=== PATIENT | female | born 1980 | race Caucasian/White ===

== ENCOUNTER 2017-11-18 11:41 | Observation (INO) ==
[2017-11-18 12:44] LABS: Basophils % 0.3 %; Eosinophils # 0.2 K/mcL (0.0-0.6); Eosinophils % 1.2 %; Hematocrit 37.3 % (35.3-44.9); Hemoglobin 12.2 g/dL (11.5-15.4); Immature Granulocytes % 0.5 % (0-4); Lymphocytes # 2.1 K/mcL (0.6-4.6); Lymphocytes % 16.1 %; Mean Corpuscular HGB Conc 32.7 g/dL (31.6-35.5); Mean Corpuscular Hemoglobin 29.1 pg (28.0-33.3); Mean Platelet Volume 9.9 fL (9.4-12.4); Monocytes # 0.8 K/mcL (0.0-1.3); Monocytes % 6.2 %; Neutrophils # 9.8 K/mcL (1.6-8.9); Platelet Count 316 K/mcL (140-400); Red Blood Count 4.19 M/mcL (3.82-4.97); Red Cell Distribution Width 12.9 % (11.5-14.5); Segmented Neutrophils % 75.7 %
[2017-11-18 12:48] LABS: Amphetamine Screen,Urine Negative ng/mL (Cutoff=1000); Barbiturate Screen,Urine Negative ng/mL (Cutoff=200); Benzodiazepines Screen,Urine Negative ng/mL (Cutoff=200); Cannabinoid Screen,Urine Negative ng/mL (Cutoff = 50); Cocaine Screen,Urine Negative ng/mL (Cutoff= 300); Opiate Screen,Urine Negative ng/mL (Cutoff=300); Phencyclidine Screen,Urine Negative ng/mL (Cutoff=25)
[2017-11-18 13:27] LABS: Alanine Aminotransferase 7 Units/L (7-52); Aspartate Amino Transferase 11 Units/L (13-39); BUN/Creatinine Ratio 16 (6-26); Blood Urea Nitrogen 9 mg/dL (6-20); Lactate Dehydrogenase 129 Units/L (140-271); Uric Acid 4.5 mg/dL (2.3-7.6); eGFR For African Americans > 60 (> 60); eGFR For Non-African Americans > 60 (> 60)
[2017-11-18 17:03] LABS: Protein/Creatinine Ratio,Urine 0.19 mg/mg (0.00-0.20)
--- NOTE | 2017-11-18 17:20 | OB/GYN Progress Note ---
Date of Encounter: 11/18/17 Time of Encounter: 17:18 - Assessment and Plan (1) 30 weeks gestation of Current Visit: Yes Status: Acute Patient receives care with Dr. Tan. She has a follow-up appointment scheduled on 11/23 (2) Transient hypertension of in third trimester Current Visit: Yes Status: Acute Asymptomatic at this time. Blood pressures normalized on admission. PI warnings given (3) Abnormal test Current Visit: Yes Status: Acute heart tones 130s baseline CAT 1 with the exception of 2 variable decelerations seen on arrival to labor and delivery. Continued monitoring showed reassuring tracing. MARGAUX was performed with the level of 10.7. Subjective - Subjective Principal diagnosis: Gestational hypertension Interval history: The patient is a 37-year-old female who is sent to labor and delivery from the office for elevated blood pressures, 160/102 in the office. She reports that she has had episodes of headaches and spots in front of her eyes but she has had nothing like that today. She denies any epigastric pain. She reports swelling when she is on her feet during the day which goes away overnight. She is appreciating an active fetus at this time and denies discomfort or contractions Antepartum ROS: movement normal, no loss of fluid, no vaginal bleeding, no contractions Objective - Vital Signs Vital Signs: Intake and Output 11/18/17 11/18/17 11/18/17 07:59 15:59 23:59 Other: Weight 109.458 kg Patient Weight 11/18/17 23:59 Weight 109.458 kg - Exam FHR: category 1 FHR comments: [place] shows occasional irregular contractions Auscultation: bilateral: normal Abdomen: Present: soft, gravid. Absent: tenderness - Labs Labs: Abnormal lab results WBC 13.0 K/mcL (4.3-11.1) H 11/18/17 12:10 Neutrophils # 9.8 K/mcL (1.6-8.9) H 11/18/17 12:10 Creatinine 0.58 mg/dL (0.60-1.20) L 11/18/17 12:10 AST 11 Units/L (13-39) L 11/18/17 12:10 Lactate Dehydrogenase 129 Units/L (140-271) L 11/18/17 12:10 - Allied health notes Allied health notes reviewed: nursing
== END 2017-11-18 17:33 | disposition home or self-care (01) ==
LOC: 1NENULAB
PROVIDERS: ADMIT Obstetrics & Gynecology; ATTEND Obstetrics & Gynecology

== ENCOUNTER 2017-12-15 13:44 | Observation (INO) ==
[2017-12-15 14:39] LABS: Bilirubin,Urine Negative (Negative); Blood,Urine Negative (Negative); Clarity,Urine Cloudy (Clear); Color,Urine Yellow (Yellow); Glucose,Urine (UA) Normal (Normal); Ketones,Urine Negative (Negative); Leukocyte Esterase,Urine Small (Negative); Nitrite,Urine Negative (Negative); PH,Urine 6.5 pH Units (5.0-8.0); Protein,Urine 30 mg/dL (Neg-Trace); Specific Gravity,Urine 1.027 (1.010-1.025); Urobilinogen,Urine Normal (Normal)
[2017-12-15 14:41] LABS: Bacteria,Urine Few per hpf (None-Few); Hyaline Casts,Urine None Seen per lpf (None-Few); Squamous Epithelial Cell,Urine Many per lpf (None-Few)
[2017-12-15 15:04] LABS: Amphetamine Screen,Urine Negative ng/mL (Cutoff=1000); Barbiturate Screen,Urine Negative ng/mL (Cutoff=200); Benzodiazepines Screen,Urine Negative ng/mL (Cutoff=200); Cannabinoid Screen,Urine Negative ng/mL (Cutoff = 50); Cocaine Screen,Urine Negative ng/mL (Cutoff= 300); Opiate Screen,Urine Negative ng/mL (Cutoff=300); Phencyclidine Screen,Urine Negative ng/mL (Cutoff=25)
--- NOTE | 2017-12-15 15:39 | OB/GYN Progress Note ---
Date of Encounter: 12/15/17 Time of Encounter: 15:38 - Assessment and Plan (1) 33 weeks gestation of Current Visit: Yes Status: Acute (2) uterine contractions in third trimester, antepartum Current Visit: Yes Status: Acute Discharge home to rest today and potentially tomorrow too Increase water consumption to 1 gallon per day or until urine is mostly clear Follow up with Dr. Tan as scheduled. Subjective - Subjective Interval history: Pt is a 37 yo female at 33+6 weeks GA who presents today with c/o contractions since this morning happening about 2x per hour. 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 Endorses good FM and denies vaginal bleeding, LOF , SANCHEZ, blurry vision. Antepartum ROS: contractions Objective - Vital Signs Vital Signs: Intake and Output 12/14/17 12/15/17 12/15/17 23:59 07:59 15:59 Other: Weight 112 kg Patient Weight 12/15/17 23:59 Weight 112 kg - Exam FHR: auscultation normal Auscultation: bilateral: normal Abdomen: Present: normal appearance, soft, gravid Uterus: Present: normal, firm - Labs Labs: Abnormal lab results Urine Clarity Cloudy (Clear) A 12/15/17 14:21 Ur Specific Max 1.027 (1.010-1.025) H 12/15/17 14:21 Urine Protein 30 mg/dL (Neg-Trace) H 12/15/17 14:21 Ur Leukocyte Esterase Small (Negative) H 12/15/17 14:21 Urine Microscopic RBC 5-15 per hpf (0-3) H 12/15/17 14:21 Urine Microscopic WBC 5-15 per hpf (0-3) H 12/15/17 14:21 Ur Squamous Epith Cells Many per lpf (None-Few) H 12/15/17 14:21
== END 2017-12-15 15:50 | disposition home or self-care (01) ==
LOC: 1NENULAB
PROVIDERS: ADMIT Student in an Organized Health Care Education/Training Program; ATTEND Student in an Organized Health Care Education/Training Program

== ENCOUNTER 2018-01-19 18:52 | Inpatient (IN) ==
[2018-01-19 19:37] LABS: Basophils # 0.1 K/mcL (0.0-0.2); Basophils % 0.4 %; Eosinophils # 0.3 K/mcL (0.0-0.6); Eosinophils % 1.9 %; Hematocrit 34.3 % (35.3-44.9); Hemoglobin 11.3 g/dL (11.5-15.4); Immature Granulocytes % 0.6 % (0-4); Lymphocytes # 2.7 K/mcL (0.6-4.6); Lymphocytes % 19.3 %; Mean Corpuscular HGB Conc 32.9 g/dL (31.6-35.5); Mean Corpuscular Volume 84.9 fL (83.0-100.0); Mean Platelet Volume 10.7 fL (9.4-12.4); Monocytes # 0.9 K/mcL (0.0-1.3); Monocytes % 6.6 %; Neutrophils # 9.8 K/mcL (1.6-8.9); Platelet Count 310 K/mcL (140-400); Red Blood Count 4.04 M/mcL (3.82-4.97); Red Cell Distribution Width 13.1 % (11.5-14.5); Segmented Neutrophils % 71.2 %
[2018-01-19 19:46] LABS: Amphetamine Screen,Urine Negative ng/mL (Cutoff=1000); Barbiturate Screen,Urine Negative ng/mL (Cutoff=200); Benzodiazepines Screen,Urine Negative ng/mL (Cutoff=200); Cannabinoid Screen,Urine Negative ng/mL (Cutoff = 50); Cocaine Screen,Urine Negative ng/mL (Cutoff= 300); Opiate Screen,Urine Negative ng/mL (Cutoff=300); Phencyclidine Screen,Urine Negative ng/mL (Cutoff=25)
[2018-01-19 19:56] LABS: Alanine Aminotransferase 8 Units/L (7-52); Aspartate Amino Transferase 11 Units/L (13-39); BUN/Creatinine Ratio 14 (6-26); Blood Urea Nitrogen 10 mg/dL (6-20); Lactate Dehydrogenase 152 Units/L (140-271); Uric Acid 5.7 mg/dL (2.3-7.6); eGFR For African Americans > 60 (> 60); eGFR For Non-African Americans > 60 (> 60)
[2018-01-19 19:58] LABS: Protein/Creatinine Ratio,Urine 0.54 mg/mg (0.00-0.20)
--- NOTE | 2018-01-19 20:01 | OB/GYN History & Physical ---
Date of Encounter: 01/19/18 Time of Encounter: 19:53 Assessment and Plan (1) Preeclampsia Current visit: Yes Status: Acute 38 and 6 week with known complication of preeclampsia. PIH labs completed 01/17 with elevate protein/Cr ratio at 0.38. Vitals with bp elevated in 140-160s/ 90s. Patient of Dr. Tan. Concern for worsening preeclampsia. -PIH labs and Protein/Cr ratio. Protein/Cr ratio returned elevated from 0.38 to 0.54. -Continuous monitoring and vitals. -Induction of labor and expectant management. -Magnesium Qualifiers: Trimester: third trimester Qualified Code(s): O14.93 - Unspecified pre- eclampsia, third trimester (2) 38 weeks gestation of Current visit: Yes Status: Acute 38 and 6 weeks. Per plan in assessment above and expectant management. History of Present Illness Chief complaint: PIH eval HPI: Ms. Sanchez is a 37 year old female at 38 and 6 weeks and current complication of preeclampsia who presents to L&D with complaints of headaches and nausea that started earlier today and floaters in vision for past couple days. Has also had increased swelling and tightness of lower extremities. Patient was evaluated by Dr. Tan with PI labs two days ago and had elevated protein/Cr ratio a 0.38 and elevated bp. Reports sweats. Denies fevers, chest pain, shortness of breath, abdominal pain, changes in bowels or bladder, weakness, or loss of sensation. 2 prior uncomplicated vaginal deliveries. Rubella and Varicella positive., Hep B nonreactive, syphilis negative, HIV nonreactive. Past Med Surg Social Fam HX - Past Medical History Medical history: non-contributory Psychiatric history: anxiety, depression - Past Surgical History Surgical History: no surgical history - Social History Smoking Status: Former smoker Smokeless Tobacco Status: No Alcohol use: none Drug use: none - Family History Mother Age: 55 Family Member Ethnicity: Non- Living Status: Still Living Hx Family Cardiac Disorders: No Hx Family Respiratory Disorders: Yes (asthma, copd) Hx Family Cancer: No Hx Family GI Disorders: No Hx Family Genitourinary Disorders: No Hx Family Endocrine Disorder: No Hx Family Musculoskeletal Disorders: No Hx Family Neuromuscular Disorders: No Hx Family Neurologic Disorders: No Hx Family HEENT Disorders: No Hx Family Autoimmune Disorders: No Hx Family Reproductive Disorders: No Hx Family Psychosocial Disorders: No Hx Family Medical Disorders: No Obstetrical History - Pregnancies : 3 Para: 2 Term: 2 Livin Medications and Allergies Buspirone HCl [Buspar] 5 mg PO DAILY 12/15/17 [History] Formula Tablet 1 tab PO DAILY 01/19/18 [History] Zantac 150 mg PO BID 01/19/18 [History] 3 Allergy/AdvReac Type Severity Reaction Status Date / Time egg Allergy Itching Verified 12/15/17 14:24 influenza virus vaccine qv Allergy Rash Verified 12/15/17 14:25 2016- (18 yr up),rcmb [From [employer] Quad [id number] (PF)] influenza virus vaccine tv Allergy Rash Verified 12/15/17 14:25 2012-(18-49 yrs),rcmb [From Kuli Kuli] Review of System OB - Constitutional Constitutional ROS IM: as per HPI, no fever(s), no weakness - Nose, mouth, and throat Nose, mouth and throat: as per HPI - Cardiovascular Cardiovascular: as per HPI, leg edema, no chest pain, no dyspnea - Respiratory Respiratory: as per HPI, no dyspnea - Gastrointestinal Gastrointestinal: as per HPI - Genitourinary Genitourinary: as per HPI - Integumentary Integumentary: as per HPI - Neurological Nerological: as per HPI, no weakness Exam - Vital Signs Vital signs: Initial Vital Signs Pulse Resp BP 120 16 147/95 01/19/18 19:14 01/19/18 19:14 01/19/18 19:14 - Constitutional Constitutional: well developed, well nourished, no acute distress, average body habitus - HEENT HEENT: Normocephaly, Mucus Membranes Moist - Neck Neck exam: full ROM, normal inspection, supple, trachea midline - Lungs Respiratory exam: CTAB - Cardiovascular Cardiovascular exam: tachycardia - Abdomen Abdomen: Present: bowel sounds normal, gravid, non tender - Extremities Extremities exam: pedal edema (2+ bilateral), warm Deep Tendon Reflex Grade: 3+ Normal But Brisk - Vulva Vulva: bilateral: normal - Vagina Vagina: Present: normal moisture - Cervix Dilation: 1 (1.5) Effacement: 50 Station: -2 Results Result Diagrams: 01/19/18 19:20 04/12/18 19:20 Abnormal lab results WBC 13.8 K/mcL (4.3-11.1) H 01/19/18 19:20 Hgb 11.3 g/dL (11.5-15.4) L 01/19/18 19:20 Hct 34.3 % (35.3-44.9) L 01/19/18 19:20 Neutrophils # 9.8 K/mcL (1.6-8.9) H 01/19/18 19:20 All other labs normal. - VTE Reasons for not Prescribing Prophylaxis: Treatment not Indicated - Low risk for VTE
[2018-01-19] MEDS ORDERED: Famotidine 20 MG/2 ML VIAL IVP PRN (20:24)
[2018-01-19] MEDS ORDERED: Lidocaine 1% 20 ML MDV INFILT PRN (20:24)
[2018-01-19] MEDS ORDERED: miSOPROStol 25 MCG TABLET PO PRN (20:24)
[2018-01-19] MEDS ORDERED: Calcium Gluconate 1,000 MG/10 ML VIAL IV PRN (20:24)
[2018-01-19] MEDS ORDERED: Naloxone 0.4 MG/ML INJ IVP PRN (20:24)
[2018-01-19] MEDS ORDERED: *HR* Nalbuphine 10 MG/ML AMPUL IVP PRN (20:24)
[2018-01-19] MEDS: Ringers Solution, Lactated 1,000 ML IVC SCH (21:06)
[2018-01-19] MEDS ORDERED: Acetaminophen/Butalbital/CaffeineTABLET PO PRN (21:22)
[2018-01-19] MEDS ORDERED: Calcium Gluconate 1,000 MG/10 ML VIAL IVPB ONE (21:39)
[2018-01-19] MEDS: Magnesium Sulfate 20 gm/500mL 20 GM/500 ML IV.SOLN IVC SCH (21:49)
--- NOTE | 2018-01-19 22:23 | OB Labor Progress Note ---
Date of Encounter: 01/19/18 Time of Encounter: 22:18 Labor Progress Note - Subjective Subjective: Pt reports she is comfortable with few contractions. She also reports she is feeling very hot from magnesium. - Cervix Cervix: 3/60/-2 - Heart Tones Heart Tones: Baseline 130 Moderate variability Accelerations present 15x15 Decelerations absent FHR category I - [place]: Few contractions - Interventions Interventions: Bhatt bulb placed. Cytotec administered PO - Plan Plan: Continue expectant management Use peanut ball frequently Anticipate Dr. Gupta aware of POC and agrees
[2018-01-19] MEDS ORDERED: Bupivacaine-MPF 0.25% 10 ML VIAL EP ONE (23:29)
[2018-01-19] MEDS ORDERED: *HR* FentaNYL (PF) 100 MCG/2 ML VIAL EP ONE (23:29)
[2018-01-19] MEDS ORDERED: Epidural Premix (fent/bupiv) 110 ML EP SCH (23:30)
--- NOTE | 2018-01-19 23:32 | Anesthesia Evaluation PreOp ---
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 Epidural with first , no problems. No FHAP.) : Yes Alcohol Use: none Drug use: none Medications and Allergies Buspirone HCl [Buspar] 5 mg PO DAILY 12/15/17 [History] Formula Tablet 1 tab PO DAILY 01/19/18 [History] Zantac 150 mg PO BID 01/19/18 [History] 3 Allergy/AdvReac Type Severity Reaction Status Date / Time egg Allergy Itching Verified 12/15/17 14:24 influenza virus vaccine qv Allergy Rash Verified 12/15/17 14:25 2016- (18 yr up),rcmb [From [employer] Quad [id number] (PF)] influenza virus vaccine tv Allergy Rash Verified 12/15/17 14:25 2012-(18-49 yrs),rcmb [From Sgrouples] - Meds/Allergy Pre-op Review Medications Reviewed: Yes Allergies Reviewed: Yes Beta Blockers on Current Med List: No Anesthesia Results - Labs 01/19/18 19:20 01/19/18 19:20 Anesthesia Exam 140/87, 93, 16. FHTs 120s. Height: 1.68m Weight: 119kg NPO (# of Hours): 6 Pain Scale: 5 Pain Scale Used: Numeric (1 - 10) - HEENT Pupil (Motor): Pupils equal, EOMI Mallampati: II Teeth: Normal (full veneer uppers.) Oral Opening: Greater than 3 - SHOVEL OPERATOR LOC: Oriented SHOVEL OPERATOR Motor: Normal RUE, Normal LUE, Normal RLE, Normal LLE, Normal Face SHOVEL OPERATOR Sensory: Normal: RUE, LUE, RLE, LLE, Face - Cardiac Rhythm: Regular - Pulmonary Breath Sounds: bilateral Clear Respiratory Effort: Symmetrical Anesthesia Assess/Plan ASA Score: 3 (PIH, anxiety, BMI 42.) Modified Karla Scale for Level of Consciousness: Cooperative, oriented, and tranquil Anesthetic Plan: Regional Monitoring Plan: Standard Monitors
[2018-01-20] MEDS ORDERED: Oxytocin 20 units/ LR 1000 mL 20 UNIT/1,000 ML BAG IVC ONE (02:45)
[2018-01-20] MEDS ORDERED: Oxytocin 20 units/ LR 1000 mL 20 UNIT/1,000 ML BAG IVC SCH (02:45)
[2018-01-20] MEDS: Ondansetron 4 MG/2 ML VIAL IVP PRN ×2 (03:20→19:39)
--- NOTE | 2018-01-20 03:30 | OB Labor Progress Note ---
Date of Encounter: 01/20/18 Time of Encounter: 03:28 Labor Progress Note - Subjective Subjective: Pt reports slight discomfort with contractions. - Cervix Cervix: 6/70/-2 - Heart Tones Heart Tones: Baseline 145 Moderate variability Accelerations present 15x15 No decelerations FHR Category I - [place]: Contractions every 3-5 minutes - Interventions Interventions: Bhatt bulb out SVE - Plan Plan: Continue expectant management Increase pitocin per protocol to adequate labor pattern Anticipate
[2018-01-20] MEDS ORDERED: Epidural Premix (fent/bupiv) 110 ML EP ONE ×4 (07:14→23:20)
--- NOTE | 2018-01-20 07:19 | OB Labor Progress Note ---
Date of Encounter: 01/20/18 Time of Encounter: 07:17 Labor Progress Note - Subjective Subjective: Pt reports she is nearly ready for epidural. Contractions are making her uncomfortable. - Cervix Cervix: 7-8/80/-1 - Heart Tones Heart Tones: Baseline 125 Moderate variability Accelerations present 15x15 No decelerations FHR Category I - [place]: Contractions every 2-3 minutes and palpate strong - Interventions Interventions: SVE Epidural requested - Plan Plan: Continue expectant management May have epidural Anticipate
[2018-01-20] MEDS ORDERED: EPHEDrine 50 MG/ML VIAL ONE ×2 (07:46→21:34)
[2018-01-20] MEDS: Magnesium Sulfate 20 gm/500mL 20 GM/500 ML IV.SOLN IVC SCH ×2 (08:20→18:30)
[2018-01-20] MEDS: Ringers Solution, Lactated 1,000 ML IVC SCH (08:20)
--- NOTE | 2018-01-20 08:21 | Anesthesia Procedures ---
Date of Encounter: 01/20/18 Time of Encounter: 07:26 Procedures: Anesthesia - Epidural/Spinal Patient ID/Chart reviewed: Yes Patient examined: Yes OB Eval: Gestational age: term OB Eval: : 3 OB Eval: Hx Para: 2 OB Eval: Contractions: Non-stressed pattern Consent Obtained: Yes Supplemental Oxygen: None/Room Air Site Prep: Aseptic Technique, Sterile prep and drape, 0.5% Chlorhexidine/Alcohol Patient position: upright Local Anesthetic: Lidocaine 1% Amount of Local Anesthetic used: 2 Touhy Needle Gauge: 18 Touhy Needle Depth (cm): 8 Catheter Depth at Skin (cm): 13 Test Dose (1.5% Lido + Epi): Volume given (mls): 3 Test Dose Result: Negative Loading Dose: Other: 10ml from solution Loading Dose Administered: Thru Catheter Infusion Med: 0.125% Bupivacaine w/ 2 mcg/ml Fentanyl Infusion Rate (mls/hr): [address]: Tegaderm, Tape Interspace Used: L3-L4 Loss of Resistance (BENNIE): Yes (saline) Blood: No CSF: No Paresthesia: No Procedure: vss during procedure, mild hypotension requiring 100mcg tello and 10mg ephedrine, FHR stable though out per RN's
[2018-01-20] MEDS ORDERED: *HR* ROPIVACAINE 1% PF 100 MG/10 ML VIAL ONE (11:31)
--- NOTE | 2018-01-20 11:49 | Anesthesia Progress Note ---
Date of Encounter: 01/20/18 Time of Encounter: 11:37 Anesthesia Note - Note Note: 01/20/18 11:45 requesting bolus, c/o pain lower abd, neg aspiration, bolus with 8ml, 4 with lido/epi, 4 with 0.5% rop plain. vss though out, RN's/family at BS.
--- NOTE | 2018-01-20 12:44 | OB Labor Progress Note ---
Date of Encounter: 01/20/18 Time of Encounter: 12:42 Labor Progress Note - Subjective Subjective: pt resting om - Cervix Cervix: 7/80/-1 - Heart Tones Heart Tones: 180/minimal/no accels/late variable decels - [place]: IUPC placed - Interventions Interventions: IUPC placed without difficulty - Plan Plan: Turn pitocin off now Bolus 500mls Reposition on side anesthesia for blood pressure regulation. possible C/S if tracing continues.
[2018-01-20] MEDS ORDERED: Ondansetron 4 MG/2 ML VIAL ONE (12:50)
[2018-01-20] MEDS ORDERED: *HR* Ropivacaine/PF 0.5% 20 ML VIAL ONE (16:15)
[2018-01-20] MEDS ORDERED: Acetaminophen 325 MG TABLET PO ONE (19:48)
[2018-01-20] MEDS ORDERED: *HR* FentaNYL (PF) 100 MCG/2 ML VIAL ONE (20:37)
--- NOTE | 2018-01-20 20:54 | Anesthesia Progress Note ---
Date of Encounter: 01/20/18 Time of Encounter: 20:44 Anesthesia Note - Note Note: pt c/o pain right hip, right tilt, bolus post neg aspiration 5ml 0.5% rop with 100mcg fent
--- NOTE | 2018-01-20 21:19 | OB Labor Progress Note ---
Date of Encounter: 01/20/18 Time of Encounter: 21:19 Labor Progress Note - Subjective Subjective: pt comfortable with epidural - Cervix Cervix: 9 per RN - Heart Tones Heart Tones: 135/minimal/+accels/variable and late decels - [place]: 3-4 - Plan Plan: Frequent repositoning continue magnesium Use peanut ball Pitocin if tracing permits per policy Anticipate
--- NOTE | 2018-01-21 02:15 | OB Labor Progress Note ---
Date of Encounter: 01/21/18 Time of Encounter: 02:12 Labor Progress Note - Subjective Subjective: Pt comfortable with epidural. Pt states she is feeling exhausted and nauseated from magnesium. - Cervix Cervix: Complete/0 station per RN - Heart Tones Heart Tones: 150/minimal/+accels/ variable - [place]: q3-5 - Plan Plan: Will start pushing soon Concern with maternal exhaustion
--- NOTE | 2018-01-21 03:47 | OB/GYN Procedure Note ---
Delivery - Delivery Date: 01/21/18 Provider: Raina Barnes Intrapartum events: prolonged labor- > = 20hr Delivery induction: AROM, oxytocin, snell, misoprostol Delivery monitor: external FHT, external uterine, internal uterine Anesthesia: epidural Estimated Blood Loss: 400 - (s) A Infant Delivery Date: 01/21/18 Delivery Time: 03:09 Presentation: vertex Position: OA Route of delivery: Gender: Female Viability: Viable Pounds: 8 Ounces: 5 Weight Gram: 3780 kg at 1 minute: 8 at 5 mins: 9 Shoulder Dystocia: not encountered Specimens collected: cord blood Placenta: spontaneous Cord: 3 umbilical vessels - Repair Episiotomy: none Laceration Description: Perineal - 2nd Degree - Complications Delivery complications: none Delivery comments: Induction of labor for PIH, progressed to complete, maternal bearing down efforts to of liveborn female, vertex delivered OA, shoulders and body easily followed, no nuchal cord or shoulder dystocia encountered. Vigorous infant placed on maternal abdomen, APGARS 8/9. Second degree perineal laceration repaired with 3-0 vycril. Placenta delivered spontaneous ([place]) complete upon inspection. Pticoin started per policy, fundus slow to firm. 400mcg po cytotec given. EBL 400. - Disposition Mom disposition: stable in LDR disposition: stable in LDR
[2018-01-21] MEDS ORDERED: Oxytocin 20 units/ LR 1000 mL 20 UNIT/1,000 ML BAG IVC SCH (06:05)
[2018-01-21] MEDS ORDERED: Acetaminophen 325 MG TABLET PO PRN (06:05)
[2018-01-21] MEDS ORDERED: Lanolin 7 G OINT...G. TP PRN (06:05)
[2018-01-21] MEDS ORDERED: Magnesium Sulfate 20 gm/500mL 20 GM/500 ML IV.SOLN IVC SCH (06:05)
[2018-01-21] MEDS ORDERED: Benzocaine/Menthol 56 GM AEROSOL SPRAY TP PRN (06:05)
[2018-01-21] MEDS: Prenatal Vit/FA 1 EACH TABLET PO SCH (09:22)
[2018-01-21 09:37] LABS: Mean Corpuscular Hemoglobin 28.2 pg (28.0-33.3); Mean Platelet Volume 10.7 fL (9.4-12.4); Red Cell Distribution Width 13.6 % (11.5-14.5)
[2018-01-21 09:39] LABS: Hematocrit 31.5 % (35.3-44.9); Hemoglobin 10.2 g/dL (11.5-15.4); Mean Corpuscular HGB Conc 32.4 g/dL (31.6-35.5); Platelet Count 260 K/mcL (140-400); Red Blood Count 3.62 M/mcL (3.82-4.97)
[2018-01-21 09:45] LABS: Alanine Aminotransferase 9 Units/L (7-52); Aspartate Amino Transferase 17 Units/L (13-39); BUN/Creatinine Ratio 11 (6-26); Blood Urea Nitrogen 11 mg/dL (6-20); Lactate Dehydrogenase 240 Units/L (140-271); Magnesium 7.5 mg/dL (1.6-2.6); Uric Acid 7.5 mg/dL (2.3-7.6); eGFR For African Americans > 60 (> 60); eGFR For Non-African Americans > 60 (> 60)
[2018-01-21 10:14] LABS: Anisocytosis 1+ (Not Present); Lymphocytes # 1.1 K/mcL (0.6-4.6); Monocytes # 1.7 K/mcL (0.0-1.3); Neutrophils # 25.6 K/mcL (1.6-8.9); Platelet Estimate Normal (Normal)
[2018-01-21] MEDS: Magnesium Sulfate 20 gm/500mL 20 GM/500 ML IV.SOLN IVC SCH ×2 (10:15→18:31)
--- NOTE | 2018-01-21 10:21 | OB/GYN Progress Note ---
Date of Encounter: 01/21/18 Time of Encounter: 10:16 - Assessment and Plan (1) Vaginal delivery Current Visit: Yes Status: Acute Continue routine care (2) Breast feeding status of mother Current Visit: Yes Status: Acute support prn (3) Preeclampsia Current Visit: Yes Status: Acute Decrease magnesium sulfate to 1gram per hour VS Q2 hours continue strict I&Os magnesium leves Q6 hours until discontinued Magnesium to be discontinued at 0300 on 01/22/18 Qualifiers: Trimester: third trimester Qualified Code(s): O14.93 - Unspecified pre- eclampsia, third trimester Subjective - Subjective Principal diagnosis: status post on Magnesium sulfate for PIH Interval history: Patient is status post vaginal delivery. Patient has been on Magnesium sulfate since January. Patient reports dizziness and weakness. Patient denies headache. BPs WNL. Urine output appropriate. Lungs are CTAB. Discussed BPs, lab work including magnesium level with Dr. Yost. Dr. Yost orders magnesium to be decreased to 1gram per hour due to Magnesium level at 7.5 and due to magnesium sulfate dosing 4-7 is therapeutic. Will repeat magnesium level in 6 hours. Vitals signs to be every 2 hours. Patient reports: appetite normal, pain well controlled, other (Patient has snell catheter draining clear yellow urine. ) [place]: doing well, nursing well Objective - Latest Vital Signs Latest vital signs: Vital Signs Temp Pulse Resp BP Pulse Ox 01/21/18 09:15 104 24 119/75 97 01/21/18 08:15 98 F 108 24 118/75 96 01/21/18 07:15 98.8 F 108 24 132/82 97 01/21/18 06:15 98.4 F 103 16 122/81 95 Intake and Output 01/20/18 01/21/18 01/21/18 23:59 07:59 15:59 Intake Total 500 / 500 300 / 300 800 / 800 Output Total 1300 / 1300 1000 / 1000 Balance 500 / 500 -1000 / -1000 -200 / -200 Intake: IV Fluids 500 / 500 Magnesium Sulfate Premix 20 gm/ 500 / 500 500mL 20 gm In 500 ml @ 2 GM/HR 50 mls/hr IVC .Q10H ANTONIA Rx#: [id number] Oral 300 / 300 800 / 800 Output: Urine 0 / 0 600 / 600 Estimated Blood Loss 400 / 400 Catheter 900 / 900 400 / 400 Other: Meal Breakfast Percent of Meal Consumed 100% Weight 121.79 kg Patient Weight 01/21/18 23:59 Weight 121.79 kg - Exam Lungs: bilateral: normal Chest: Normal S1, Normal S2 Extremities: Present: edema (bilateral lower extremetis pitting edema, upper extremeties bilateral) Abdomen: Present: normal appearance, soft, gravid Uterus: Present: normal, firm Uterus Position: At Umbilicus, Midline Comments: 3+ DTRs, no clonus - Labs Labs: Laboratory Results - last 24 hr 01/21/18 01/21/18 06:35 06:35 WBC 28.4 H D RBC 3.62 L Hgb 10.2 L Hct 31.5 L MCV 87.0 MCH 28.2 MCHC 32.4 RDW 13.6 Plt Count 260 MPV 10.7 Seg Neutrophils % 90.0 Lymphocytes % 4.0 Monocytes % 6.0 Neutrophils # 25.6 H Lymphocytes # 1.1 Monocytes # 1.7 H Platelet Estimate Normal Anisocytosis 1+ A BUN 11 Creatinine 1.01 Est GFR ( Amer) > 60 Est GFR (Non-Af Amer) > 60 BUN/Creatinine Ratio 11 Uric Acid 7.5 Magnesium 7.5 H AST 17 ALT 9 Lactate Dehydrogenase 240
[2018-01-21] MEDS ORDERED: Ringers Solution, Lactated 1,000 ML IVC SCH (11:15)
[2018-01-21] MEDS ORDERED: miSOPROStol 100 MCG TABLET PO ONE (14:59)
[2018-01-21] MEDS: Ibuprofen 600 MG TABLET PO PRN (21:20)
[2018-01-22 03:06] LABS: Basophils # 0.1 K/mcL (0.0-0.2); Basophils % 0.4 %; Eosinophils # 0.3 K/mcL (0.0-0.6); Eosinophils % 1.3 %; Hematocrit 31.4 % (35.3-44.9); Hemoglobin 10.4 g/dL (11.5-15.4); Immature Granulocytes % 0.8 % (0-4); Lymphocytes # 3.3 K/mcL (0.6-4.6); Lymphocytes % 17.7 %; Mean Corpuscular HGB Conc 33.1 g/dL (31.6-35.5); Mean Corpuscular Volume 87.5 fL (83.0-100.0); Mean Platelet Volume 10.3 fL (9.4-12.4); Monocytes # 1.1 K/mcL (0.0-1.3); Monocytes % 5.8 %; Neutrophils # 13.9 K/mcL (1.6-8.9); Platelet Count 296 K/mcL (140-400); Red Blood Count 3.59 M/mcL (3.82-4.97); Red Cell Distribution Width 13.9 % (11.5-14.5)
[2018-01-22 03:29] LABS: Alanine Aminotransferase 8 Units/L (7-52); Aspartate Amino Transferase 14 Units/L (13-39); BUN/Creatinine Ratio 12 (6-26); Blood Urea Nitrogen 12 mg/dL (6-20); Lactate Dehydrogenase 250 Units/L (140-271); Uric Acid 8.2 mg/dL (2.3-7.6); eGFR For African Americans > 60 (> 60); eGFR For Non-African Americans > 60 (> 60)
[2018-01-22] MEDS: Prenatal Vit/FA 1 EACH TABLET PO SCH (08:35)
--- NOTE | 2018-01-22 09:03 | OB/GYN Progress Note ---
Date of Encounter: 01/22/18 Time of Encounter: 09:01 - Assessment and Plan (1) Vaginal delivery Current Visit: Yes Status: Acute Continue routine care (2) Breast feeding status of mother Current Visit: Yes Status: Acute support prn (3) Preeclampsia Current Visit: Yes Status: Acute Magnesium sulfate off at 0300 will repeat PIH labs in AM vital signs Q4 hours Qualifiers: Trimester: third trimester Qualified Code(s): O14.93 - Unspecified pre- eclampsia, third trimester Subjective - Subjective Principal diagnosis: day 1, , severe PIH Interval history: Patient is day 1. Patient had severe PIH and was on magnesium sulfate until 0300. BPs VS WNL, patient reports feeling better. Denies SANCHEZ, visual disturbances or epigastric pain. Urine output appropriate. Discussed lab values with patient. Will plan to repeat labs in AM and discharge tomorrow. Patient reports: appetite normal, voiding normally, pain well controlled, ambulating normally [place]: doing well, nursing well Objective - Latest Vital Signs Latest vital signs: Vital Signs Temp Pulse Resp BP Pulse Ox 01/22/18 08:37 98.3 F 94 14 113/80 97 01/22/18 05:15 112/72 01/22/18 02:15 98.2 F 78 20 119/75 96 01/22/18 01:15 86 16 110/74 97 01/21/18 23:30 98.3 F 85 16 113/69 95 01/21/18 21:15 98.5 F 98 16 111/76 96 01/21/18 19:24 89 16 112/73 97 01/21/18 19:15 98.1 F 90 16 126/85 97 01/21/18 17:15 98 F 86 20 124/79 98 01/21/18 15:40 98 F 94 20 121/71 97 01/21/18 11:15 97.7 F 93 24 109/65 96 01/21/18 09:15 104 24 119/75 97 Intake and Output 01/21/18 01/22/18 01/22/18 23:59 07:59 15:59 Intake Total 290 / 290 675 / 675 Output Total 1950 / 1950 200 / 200 Balance -1660 / -1660 475 / 475 Intake: IV Fluids 50 / 50 675 / 675 Magnesium Sulfate Premix 20 gm/ 50 / 50 175 / 175 500mL 20 gm In 500 ml @ 1 GM/HR 25 mls/hr IVC .Q20H ANTONIA Rx#: [id number] Lactated Ringers 1,000 ML @ 75 500 / 500 mls/hr IVC .[id number] ANTONIA Rx#: [id number] Oral 240 / 240 0 / 0 Output: Urine 1050 / 1050 Catheter 900 / 900 200 / 200 Other: Meal Dinner Percent of Meal Consumed 100% Weight 113.126 kg Patient Weight 01/22/18 23:59 Weight 113.126 kg - Exam Lungs: bilateral: normal Chest: Normal S1, Normal S2 Extremities: Present: normal Abdomen: Present: normal appearance, soft, gravid Uterus: Present: normal, firm Uterus Position: 1 Finger Below Umbilicus, Midline Comments: 2+ DTRs no clonus. 2+ pitting edema bilateral lower extremities. - Labs Labs: Laboratory Results - last 24 hr 01/21/18 01/21/18 01/21/18 06:35 06:35 15:43 WBC 28.4 H D RBC 3.62 L Hgb 10.2 L Hct 31.5 L MCV 87.0 MCH 28.2 MCHC 32.4 RDW 13.6 Plt Count 260 MPV 10.7 Immature Gran % Seg Neutrophils % 90.0 Lymphocytes % 4.0 Monocytes % 6.0 Eosinophils % Basophils % Neutrophils # 25.6 H Lymphocytes # 1.1 Monocytes # 1.7 H Eosinophils # Basophils # Platelet Estimate Normal Anisocytosis 1+ A BUN 11 Creatinine 1.01 Est GFR ( Amer) > 60 Est GFR (Non-Af Amer) > 60 BUN/Creatinine Ratio 11 Uric Acid 7.5 Magnesium 7.5 H 5.9 H AST 17 ALT 9 Lactate Dehydrogenase 240 01/21/18 01/22/18 01/22/18 22:03 02:59 02:59 WBC 18.7 H RBC 3.59 L Hgb 10.4 L Hct 31.4 L MCV 87.5 MCH 29.0 MCHC 33.1 RDW 13.9 Plt Count 296 MPV 10.3 Immature Gran % 0.8 Seg Neutrophils % 74.0 Lymphocytes % 17.7 Monocytes % 5.8 Eosinophils % 1.3 Basophils % 0.4 Neutrophils # 13.9 H Lymphocytes # 3.3 Monocytes # 1.1 Eosinophils # 0.3 Basophils # 0.1 Platelet Estimate Anisocytosis BUN 12 Creatinine 1.04 Est GFR ( Amer) > 60 Est GFR (Non-Af Amer) > 60 BUN/Creatinine Ratio 12 Uric Acid 8.2 H Magnesium 5.0 H AST 14 ALT 8 Lactate Dehydrogenase 250
[2018-01-22] MEDS: Ibuprofen 600 MG TABLET PO PRN (16:11)
[2018-01-23] MEDS: Ibuprofen 600 MG TABLET PO PRN (04:11)
[2018-01-23 04:14] LABS: Basophils # 0.1 K/mcL (0.0-0.2); Basophils % 0.5 %; Eosinophils # 0.3 K/mcL (0.0-0.6); Eosinophils % 2.4 %; Hematocrit 30.4 % (35.3-44.9); Hemoglobin 9.8 g/dL (11.5-15.4); Immature Granulocytes % 0.8 % (0-4); Lymphocytes % 25.6 %; Mean Corpuscular HGB Conc 32.2 g/dL (31.6-35.5); Mean Corpuscular Hemoglobin 28.3 pg (28.0-33.3); Mean Corpuscular Volume 87.9 fL (83.0-100.0); Monocytes # 0.7 K/mcL (0.0-1.3); Neutrophils # 7.5 K/mcL (1.6-8.9); Nucleated Red Blood Cells 0.3 /100 WBC (0); Platelet Count 272 K/mcL (140-400); Red Blood Count 3.46 M/mcL (3.82-4.97); Red Cell Distribution Width 13.7 % (11.5-14.5); Segmented Neutrophils % 64.7 %
[2018-01-23 04:33] LABS: Alanine Aminotransferase 8 Units/L (7-52); Aspartate Amino Transferase 13 Units/L (13-39); BUN/Creatinine Ratio 16 (6-26); Blood Urea Nitrogen 13 mg/dL (6-20); Lactate Dehydrogenase 214 Units/L (140-271); Uric Acid 7.9 mg/dL (2.3-7.6); eGFR For African Americans > 60 (> 60); eGFR For Non-African Americans > 60 (> 60)
[2018-01-23 07:24] VITALS: BP 112/76
[2018-01-23] MEDS: Prenatal Vit/FA 1 EACH TABLET PO SCH (07:43)
--- NOTE | 2018-01-23 11:40 | Discharge Summary ---
Date of Encounter: 01/23/18 Time of Encounter: 11:38 - Discharge Diagnosis (1) Breast feeding status of mother Priority: Secondary Status: Acute (2) Preeclampsia Priority: Secondary Status: Acute Qualifiers: Trimester: third trimester Qualified Code(s): O14.93 - Unspecified pre- eclampsia, third trimester (3) Vaginal delivery Priority: Primary Status: Acute Comments: Pain well controlled with PO medication Tolerating regular diet Voiding normally Passing flatus, but no BM yet Ambulating independently Discharge home today - Discharge Medications Prescriptions: Ibuprofen [Motrin] 600 mg PO Q6HR PRN #30 tablet PRN Reason: Cramping Breast Pump [BREAST PUMP] 1 each .ROUTE AD #1 each Docusate [Colace] 100 mg PO BID #60 capsule Ferrous Sulfate 325 mg PO DAILY #30 tablet Home Medications: Buspirone HCl [Buspar] 5 mg PO DAILY 12/15/17 [History] Formula Tablet 1 tab PO DAILY 01/19/18 [History] Zantac 150 mg PO BID 01/19/18 [History] Acetaminophen [Tylenol] 650 mg PO Q6HR PRN tablet 01/23/18 [Rx] Benzocaine/Menthol Marion [Dermoplast Marion] 1 appl TP QID PRN aerosol 01/23/18 [Rx] Breast Pump [BREAST PUMP] 1 each .ROUTE AD #1 each 01/23/18 [Rx] Docusate [Colace] 100 mg PO BID #60 capsule 01/23/18 [Rx] Ferrous Sulfate 325 mg PO DAILY #30 tablet 01/23/18 [Rx] Ibuprofen [Motrin] 600 mg PO Q6HR PRN #30 tablet 01/23/18 [Rx] Lanolin [Lansinoh] 1 appl TP QID PRN oint...g. 01/23/18 [Rx] Allergies/Adverse Reactions: 3 Allergy/AdvReac Type Severity Reaction Status Date / Time egg Allergy Itching Verified 12/15/17 14:24 influenza virus vaccine qv Allergy Rash Verified 12/15/17 14:25 2016- (18 yr up),rcmb [From copygram Quad [id number] (PF)] influenza virus vaccine tv Allergy Rash Verified 12/15/17 14:25 2012-14(18-49 yrs),rcmb [From copygram] Data Procedures and tests throughout hospitalization: Laboratory Tests 01/19/18 01/19/18 01/19/18 19:20 19:20 19:20 WBC 13.8 H RBC 4.04 Hgb 11.3 L Hct 34.3 L MCV 84.9 MCH 28.0 MCHC 32.9 RDW 13.1 Plt Count 310 MPV 10.7 Immature Gran % 0.6 Seg Neutrophils % 71.2 Lymphocytes % 19.3 Monocytes % 6.6 Eosinophils % 1.9 Basophils % 0.4 Neutrophils # 9.8 H Lymphocytes # 2.7 Monocytes # 0.9 Eosinophils # 0.3 Basophils # 0.1 Nucleated RBCs/100 WBC Platelet Estimate Anisocytosis BUN Creatinine Est GFR ( Amer) Est GFR (Non-Af Amer) BUN/Creatinine Ratio Uric Acid Magnesium AST ALT Lactate Dehydrogenase Urine Creatinine 175 Protein/Creatinin Ratio 0.54 H Urine Total Protein 95 H Urine Opiates Screen Negative Ur Barbiturates Screen Negative Ur Phencyclidine Scrn Negative Ur Amphetamines Screen Negative U Benzodiazepines Scrn Negative Urine Cocaine Screen Negative U Marijuana (THC) Screen Negative 01/19/18 01/21/18 01/21/18 19:20 06:35 06:35 WBC 28.4 H D RBC 3.62 L Hgb 10.2 L Hct 31.5 L MCV 87.0 MCH 28.2 MCHC 32.4 RDW 13.6 Plt Count 260 MPV 10.7 Immature Gran % Seg Neutrophils % 90.0 Lymphocytes % 4.0 Monocytes % 6.0 Eosinophils % Basophils % Neutrophils # 25.6 H Lymphocytes # 1.1 Monocytes # 1.7 H Eosinophils # Basophils # Nucleated RBCs/100 WBC Platelet Estimate Normal Anisocytosis 1+ A BUN 10 11 Creatinine 0.69 1.01 Est GFR ( Amer) > 60 > 60 Est GFR (Non-Af Amer) > 60 > 60 BUN/Creatinine Ratio 14 11 Uric Acid 5.7 7.5 Magnesium 7.5 H AST 11 L 17 ALT 8 9 Lactate Dehydrogenase 152 240 Urine Creatinine Protein/Creatinin Ratio Urine Total Protein Urine Opiates Screen Ur Barbiturates Screen Ur Phencyclidine Scrn Ur Amphetamines Screen U Benzodiazepines Scrn Urine Cocaine Screen U Marijuana (THC) Screen 01/21/18 01/21/18 01/22/18 15:43 22:03 02:59 WBC 18.7 H RBC 3.59 L Hgb 10.4 L Hct 31.4 L MCV 87.5 MCH 29.0 MCHC 33.1 RDW 13.9 Plt Count 296 MPV 10.3 Immature Gran % 0.8 Seg Neutrophils % 74.0 Lymphocytes % 17.7 Monocytes % 5.8 Eosinophils % 1.3 Basophils % 0.4 Neutrophils # 13.9 H Lymphocytes # 3.3 Monocytes # 1.1 Eosinophils # 0.3 Basophils # 0.1 Nucleated RBCs/100 WBC Platelet Estimate Anisocytosis BUN Creatinine Est GFR ( Amer) Est GFR (Non-Af Amer) BUN/Creatinine Ratio Uric Acid Magnesium 5.9 H 5.0 H AST ALT Lactate Dehydrogenase Urine Creatinine Protein/Creatinin Ratio Urine Total Protein Urine Opiates Screen Ur Barbiturates Screen Ur Phencyclidine Scrn Ur Amphetamines Screen U Benzodiazepines Scrn Urine Cocaine Screen U Marijuana (THC) Screen 01/22/18 01/23/18 01/23/18 02:59 04:05 04:05 WBC 11.6 H RBC 3.46 L Hgb 9.8 L Hct 30.4 L MCV 87.9 MCH 28.3 MCHC 32.2 RDW 13.7 Plt Count 272 MPV 10.0 Immature Gran % 0.8 Seg Neutrophils % 64.7 Lymphocytes % 25.6 Monocytes % 6.0 Eosinophils % 2.4 Basophils % 0.5 Neutrophils # 7.5 Lymphocytes # 3.0 Monocytes # 0.7 Eosinophils # 0.3 Basophils # 0.1 Nucleated RBCs/100 WBC 0.3 H Platelet Estimate Anisocytosis BUN 12 13 Creatinine 1.04 0.81 Est GFR ( Amer) > 60 > 60 Est GFR (Non-Af Amer) > 60 > 60 BUN/Creatinine Ratio 12 16 Uric Acid 8.2 H 7.9 H Magnesium AST 14 13 ALT 8 8 Lactate Dehydrogenase 250 214 Urine Creatinine Protein/Creatinin Ratio Urine Total Protein Urine Opiates Screen Ur Barbiturates Screen Ur Phencyclidine Scrn Ur Amphetamines Screen U Benzodiazepines Scrn Urine Cocaine Screen U Marijuana (THC) Screen Labs on day of discharge: Labs from last 24 hours 01/23/18 01/23/18 04:05 04:05 WBC 11.6 H RBC 3.46 L Hgb 9.8 L Hct 30.4 L MCV 87.9 MCH 28.3 MCHC 32.2 RDW 13.7 Plt Count 272 MPV 10.0 Immature Gran % 0.8 Seg Neutrophils % 64.7 Lymphocytes % 25.6 Monocytes % 6.0 Eosinophils % 2.4 Basophils % 0.5 Neutrophils # 7.5 Lymphocytes # 3.0 Monocytes # 0.7 Eosinophils # 0.3 Basophils # 0.1 Nucleated RBCs/100 WBC 0.3 H BUN 13 Creatinine 0.81 Est GFR ( Amer) > 60 Est GFR (Non-Af Amer) > 60 BUN/Creatinine Ratio 16 Uric Acid 7.9 H AST 13 ALT 8 Lactate Dehydrogenase 214 Date of admission: 01/19/18 20:25 Primary care physician: PCP NONE Consults: 01/21/18 06:05 Consult to [employer] Units Supervisor [CONS] Routine Comment: Vaginal delivery, consult needed Discharging clinician: Antonieta Vasques Anticipated date of discharge: 01/23/18 - Patient Status Disposition: Home, Self-Care Condition: Good Functional capacity at discharge: independent ambulation Overall status at discharge: patient is progressing back to baseline - Discharge Instructions Follow Up With: NONE,PCP [Primary Care Provider] - Lencho Tan DO [Partnered Physician] - - Diet and Activity Activity: increase activity as tolerated Diet: regular diet Hospital Course Reason for admission: induction of labor, IUP at term, pre-eclampsia Delivery: Episiotomy: none Laceration: 2nd degree Other procedures: none complications: none Discharge diagnosis: IUP at term delivered baby: female Time Attestation: Total time spent providing and/or coordinating discharge services: Time Spent: Less than 30 minutes Exam - Constitutional Vitals: Temp Pulse Resp BP Pulse Ox 98.1 F 83 16 112/76 96 01/23/18 07:23 01/23/18 07:23 01/23/18 07:23 01/23/18 07:23 01/23/18 04:07 General appearance IM: A&O X 3 - Respiratory Respiratory exam: Present: CTAB - Cardiovascular Cardiovascular exam IM: Present: RRR, +S1, +S2 - GI/Abdominal GI/Abdominal exam IM: normal bowel sounds, no peritoneal signs - Rectal Rectal exam: deferred - Uterine Tone: Firm Uterus Position: At Umbilicus, Midline - Extremities Exam Extremities exam IM: Present: normal inspection, radial pulses palpable and symmetrical - Neurological Exam Neurological exam: alert, oriented X3 - Psychiatric Additional comments: Pt feeling mentally well today. S/sx of PPD reviewed and pt verbalized understanding of when to call
== END 2018-01-23 15:00 | disposition home or self-care (01) | DRG 775 ==
LOC: 1NENULAB → 1NENUOBS 01-21 07:06
PROVIDERS: ADMIT Obstetrics & Gynecology; ATTEND Obstetrics & Gynecology